=== PATIENT | female | born 1975 | race Caucasian/White ===

== ENCOUNTER → 2021-07-29 | Outpatient (CLI) | payer MEDICAID, OTHER ==
[2015-11-15 13:19] VITALS: BP 131/81
[~2021-07-29] MED LIST: OXYC1TAB15 PO; PNV1TABL25 PO
--- NOTE | 2021-07-29 11:08 | KCIC ---
Bilateral diagnostic digital mammograms with 3-D tomosynthesis: Reason for examination: Right breast pain. Comparison is made to previous study dated 02/19/2011. Bilateral mammograms in CC and oblique projections were obtained with 2-D imaging and 3-D tomosynthes is imaging on a Siemens Inspiration unit and reviewed on the workstation. Interpretation was made wit h the benefit of CAD. The skin and nipples show no abnormalities. No abnormal axillary lymph nodes are seen. The breast par enchyma shows scattered fatty and fibroglandular density. (Breast density: Category B.) There is some nodularity in the subareolar position of the right breast seen best on CC view which may represent s ome ductal ectasia but ultrasound follow-up is recommended. No abnormality seen in the area of clinic al concern at the 10:00 position posteriorly in the right breast. In the left breast, there is some n odular asymmetry in the 6:00 position anteriorly this however is probably less prominent than on prev ious exam. There are however increasing calcifications present in the medial left breast predominantl y superiorly. Some of these calcifications appear to be in a branching pattern. A biopsy clip is pres ent in the left breast but appears to lie anterior to the calcifications. Further evaluation with mini reotactic biopsy is recommended. There are no other new dominant masses, suspicious calcifications or architectural distortion. Impression: Increasing clustered calcifications in the medial left breast especially superiorly. There is a biops y clip present anteriorly adjacent to these calcifications. Calcifications however do show a branchin g pattern and further evaluation with stereotactic biopsy is recommended. Nodular asymmetry at the subareolar position of the right breast seen best on cc view and in the 6:00 position anteriorly in the left breast. Ultrasound to follow. BI-RAD Category 0: Incomplete. Needs additional imaging evaluation. Bilateral breast ultrasound: Ultrasound examination of the breasts and axilla was performed bilaterally. In the right breast in the retroareolar 6:00 position, there appears to be a 7 mm hyperechoic lesion in parallel orientation which has a fibrocystic appearance. No abnormality seen in the area of clinic al concern at the 9:00 to 10:00 position posteriorly. No abnormal appearing lymph nodes are seen in t he right axilla. The left breast shows some dense fibroglandular tissue at the 6:00 position 2 cm from the nipple whic h contains some minimal fibrocystic changes. There is some ductal ectasia in the retroareolar positio n. No suspicious mass is evident in the area of calcifications in the upper inner quadrant of the lef t breast. No abnormal appearing lymph nodes are seen in the left axilla. IMPRESSION: Benign-appearing fibrocystic type changes in the 6:00 retroareolar position of the right breast. Benign-appearing fibrocystic type changes at the 6:00 position of the left breast anteriorly. Recommend 6 month follow-up of the sonographic findings. Stereotactic biopsy of the calcification seen mammographically in the left breast however is recommen ded. BI-RADS Category 4: Suspicious. These findings have been discussed with the patient and the patient was instructed to follow-up with Ann Cardona to schedule the stereotactic biopsy and Ann Cardona's certified medical coder was notifie d via voicemail about these findings at 11:00 AM on 07/29/2021. "Our facility is accredited by the [employer] Mammography [employer]." This patient's information has been entered into a reminder system for the patient to be notified wit h the results of her examination and a target date for the next mammogram. Electronically signed by: Geovanna Leyva MD (07/29/2021 11:06 AM) [id number]
== END ==
LOC: KCIC MAMMO 09:39
PROVIDERS: ATTEND Nurse Practitioner Family
DX: N64.89 Other specified disorders of breast (principal); N64.4 Mastodynia
CPT/HCPCS: 76641; 77066